=== PATIENT | male | born 1975 | race Caucasian/White ===

== ENCOUNTER 2017-06-03 13:35 | Emergency (ER) | payer MEDICARE ==
[~2017-06-03] VITALS: Ht 177.8 cm; Wt 73.6 kg
[~2017-06-03 13:35] MED LIST: ZOLO100T OR; ZOLO50TA OR; ZYPR15TA OR
--- NOTE | 2017-06-03 14:35 | REP ---
Right hand series: Four views. History: Injury. Findings: There is an impacted fracture of the distal third metacarpal with associated soft-tissue swelling. There is second metacarpal shortening. On the frontal view there is 7-8 mm of impaction. No displacement. No other fracture seen. Impression: Moderately impacted fracture of the distal end of the third metacarpal with shortening of the third metacarpal as a result. Associated swelling. Signed by Benny Nettles MD 06/03/2017 05:11 P
[2017-06-03 15:45] VITALS: BP 132/96
[2017-06-03] MEDS ORDERED: IBUP80TA PO (15:55)
== END 2017-06-03 16:07 | disposition home or self-care (01) ==
LOC: M ED 13:35
DX: S62.392A Other fracture of third metacarpal bone, right hand, initial encounter for closed fracture (principal); W22.8XXA Striking against or struck by other objects, initial encounter; Y92.099 Unspecified place in other non-institutional residence as the place of occurrence of the external cause; Y93.9 Activity, unspecified; Y99.9 Unspecified external cause status; F17.200 Nicotine dependence, unspecified, uncomplicated; F10.10 Alcohol abuse, uncomplicated; Z79.899 Other long term (current) drug therapy

== ENCOUNTER → 2017-09-18 | Outpatient (CLI) | payer MEDICARE ==
[2017-09-18 11:14] LABS: HEMATOCRIT 43.6 % (42.0-52.0); HEMOGLOBIN 15.2 g/dl (14.0-18.0); MEAN CORPUSCULAR HEMOGLOBIN 33.6 pg (27.0-33.0); MEAN CORPUSCULAR HGB CONC 34.9 g/dl (32.0-36.5); MEAN CORPUSCULAR VOLUME 96.2 fl (80.0-96.0); PLATELET COUNT, AUTOMATED 192 10^3/uL (150-450); RED BLOOD COUNT 4.53 10^6/uL (4.30-6.10); WHITE BLOOD COUNT 6.8 10^3/uL (4.0-10.0)
[2017-09-18 11:40] LABS: ESTIMATED AVERAGE GLUCOSE 105 MG/DL (60-110); HEMOGLOBIN A1c 5.3 %
[2017-09-18 12:01] LABS: ALBUMIN 3.7 GM/DL (3.2-5.2); ALKALINE PHOSPHATASE 118 U/L (45-117); ALT/SGPT 83 U/L (12-78); ANION GAP 10 MEQ/L (8-16); AST/SGOT 89 U/L (7-37); BILIRUBIN,DIRECT 0.2 MG/DL (0.0-0.2); BILIRUBIN,TOTAL 0.4 MG/DL (0.2-1.0); BLOOD UREA NITROGEN 4 MG/DL (7-18); CALCIUM LEVEL 8.7 MG/DL (8.5-10.1); CARBON DIOXIDE LEVEL 25 MEQ/L (21-32); CHLORIDE LEVEL 102 MEQ/L (98-107); CHOLESTEROL LEVEL 181 MG/DL (<200); CHOLESTEROL RISK RATIO 1.675 (<5); CREATININE FOR GFR 0.75 MG/DL (0.70-1.30); GLOMERULAR FILTRATION RATE > 60.0 (>60); GLUCOSE, FASTING 69 MG/DL (70-100); HDL CHOLESTEROL 108 MG/DL (>40); NON-HDL-C 73 MG/DL; SODIUM LEVEL 137 MEQ/L (136-145); TOTAL PROTEIN 7.8 GM/DL (6.4-8.2); TRIGLYCERIDES LEVEL 65 MG/DL (<150)
== END ==
LOC: M LAB 09:51
DX: Z79.899 Other long term (current) drug therapy (principal)
CPT/HCPCS: 82248

== ENCOUNTER → 2018-03-09 | Outpatient (REF) | payer MEDICARE ==
[2018-03-09 19:55] LABS: BASO # 0.1 10^3/uL (0.0-0.2); BASO % 0.6 % (0.0-1.0); EOS # 0.2 10^3/uL (0.0-0.50); EOS % 2.5 % (0.0-3.0); HEMATOCRIT 46.6 % (42.0-52.0); HEMOGLOBIN 15.6 g/dl (13.5-17.5); IMMATURE GRANULOCYTE % 0.7 % (0-3.0); LYMPH # 1.7 10^3/uL (1.5-4.5); MEAN CORPUSCULAR HEMOGLOBIN 34.1 pg (27.0-33.0); MEAN CORPUSCULAR HGB CONC 33.5 g/dl (32.0-36.5); MONO # 0.7 10^3/uL (0.0-0.8); MONO % 7.7 % (0.0-5.0); NEUTROPHILS # 6.6 10^3/uL (1.8-7.7); NEUTROPHILS % 70.5 % (36.0-66.0); PLATELET COUNT, AUTOMATED 246 10^3/uL (150-450); RED BLOOD COUNT 4.57 10^6/uL (4.30-6.10); RED CELL DISTRIBUTION WIDTH 11.9 % (11.5-14.5); WHITE BLOOD COUNT 9.4 10^3/uL (4.0-10.0)
[2018-03-09 20:11] LABS: ALBUMIN 3.7 GM/DL (3.2-5.2); ALKALINE PHOSPHATASE 117 U/L (45-117); ALT/SGPT 33 U/L (12-78); ANION GAP 6 MEQ/L (8-16); AST/SGOT 37 U/L (7-37); BILIRUBIN,TOTAL 0.5 MG/DL (0.2-1.0); BLOOD UREA NITROGEN 10 MG/DL (7-18); CALCIUM LEVEL 9.1 MG/DL (8.5-10.1); CARBON DIOXIDE LEVEL 28 MEQ/L (21-32); CHLORIDE LEVEL 104 MEQ/L (98-107); CHOLESTEROL LEVEL 196 MG/DL (<200); CHOLESTEROL RISK RATIO 2.063 (<5); CREATININE FOR GFR 0.83 MG/DL (0.70-1.30); GLOMERULAR FILTRATION RATE > 60.0 (>60); GLUCOSE, FASTING 97 MG/DL (70-100); HDL CHOLESTEROL 95 MG/DL (>40); LDL CHOLESTEROL 90.4 MG/DL (<100); NON-HDL-C 101 MG/DL; POTASSIUM SERUM 4.6 MEQ/L (3.5-5.1); SODIUM LEVEL 138 MEQ/L (136-145); TOTAL PROTEIN 8.3 GM/DL (6.4-8.2); TRIGLYCERIDES LEVEL 53 MG/DL (<150)
[2018-03-11 12:16] LABS: HEPATITIS B CORE ANTIBODY IGM NEGATIVE (NEGATIVE); HEPATITIS B SURFACE ANTIGEN NEGATIVE (NEGATIVE); HEPATITIS C VIRUS ABY INDEX < 0.0 INDEX (<0.8)
[2018-03-11 12:18] LABS: HEPATITIS A ANTIBODY IGM NEGATIVE (NEGATIVE)
== END ==
LOC: M LAB REF 17:45
DX: Z00.01 Encounter for general adult medical examination with abnormal findings (principal); R74.8 Abnormal levels of other serum enzymes; Z79.899 Other long term (current) drug therapy
CPT/HCPCS: 84443

== ENCOUNTER → 2019-02-24 | Outpatient (REF) | payer MEDICARE ==
[~2019-02-24] MED LIST changes: +IBUP80TA PO
[2019-02-24 17:49] LABS: ALBUMIN 3.3 GM/DL (3.2-5.2); ALT/SGPT 30 U/L (12-78); BILIRUBIN,TOTAL 0.3 MG/DL (0.2-1.0); BLOOD UREA NITROGEN 5 MG/DL (7-18); CALCIUM LEVEL 9.2 MG/DL (8.5-10.1); CARBON DIOXIDE LEVEL 29 MEQ/L (21-32); CHLORIDE LEVEL 103 MEQ/L (98-107); CHOLESTEROL LEVEL 185 MG/DL (<200); CHOLESTEROL RISK RATIO 1.868 (<5); GLOMERULAR FILTRATION RATE > 60.0 (>60); GLUCOSE, FASTING 85 MG/DL (70-100); HDL CHOLESTEROL 99 MG/DL (>40); LDL CHOLESTEROL 75 MG/DL (<100); NON-HDL-C 86 MG/DL; POTASSIUM SERUM 4.4 MEQ/L (3.5-5.1); SODIUM LEVEL 138 MEQ/L (136-145); TOTAL PROTEIN 7.3 GM/DL (6.4-8.2); TRIGLYCERIDES LEVEL 53 MG/DL (<150)
== END ==
LOC: M LAB REF 16:24
PROVIDERS: ATTEND Family Medicine Addiction Medicine
DX: Z00.01 Encounter for general adult medical examination with abnormal findings (principal); R74.8 Abnormal levels of other serum enzymes; Z79.899 Other long term (current) drug therapy

== ENCOUNTER 2020-02-21 11:24 | Emergency (ER) | payer MEDICARE ==
[~2020-02-21] VITALS: Ht 177.8 cm; Wt 59.5 kg
[2020-02-21 11:24] VITALS: BP 121/82
--- NOTE | 2020-02-21 12:09 | REP ---
Clinical: Trauma. Technique: AP, lateral, bilateral oblique views of the right hand. Findings: There is an angulated fracture at at the head of the second metacarpal bone with overlying soft tissue swelling. Old healed fracture of the third metacarpal bone noted. Remainder of the examination appears normal. Impression: Angulated fracture of the second metacarpal bone. Electronically Signed by Jerry Durham MD 02/21/2020 11:59 A
== END 2020-02-21 12:21 | disposition home or self-care (01) ==
LOC: M ED 11:24
DX: S62.300A Unspecified fracture of second metacarpal bone, right hand, initial encounter for closed fracture (principal); W22.09XA Striking against other stationary object, initial encounter; Y92.9 Unspecified place or not applicable; Y93.9 Activity, unspecified; Y99.9 Unspecified external cause status

== ENCOUNTER → 2020-03-25 | Outpatient (REF) | payer MEDICARE ==
[2020-04-21 19:55] LABS: BASO # 0.1 10^3/uL (0.0-0.2); BASO % 0.8 % (0.0-1.0); EOS # 0.5 10^3/uL (0.0-0.5); EOS % 4.8 % (0.0-3.0); HEMATOCRIT 43.3 % (42.0-52.0); HEMOGLOBIN 14.8 g/dl (13.5-17.5); LYMPH # 2.3 10^3/uL (1.5-5.0); LYMPH % 20.3 % (24.0-44.0); MEAN CORPUSCULAR HEMOGLOBIN 35.3 pg (27.0-33.0); MEAN CORPUSCULAR HGB CONC 34.2 g/dl (32.0-36.5); MEAN CORPUSCULAR VOLUME 103.3 fl (80.0-96.0); MONO # 1.3 10^3/uL (0.0-0.8); MONO % 12.1 % (0.0-5.0); NEUTROPHILS # 6.9 10^3/uL (1.5-8.5); NEUTROPHILS % 61.5 % (36.0-66.0); PLATELET COUNT, AUTOMATED 223 10^3/uL (150-450); RED BLOOD COUNT 4.19 10^6/uL (4.30-6.10); WHITE BLOOD COUNT 11.1 10^3/uL (4.0-10.0)
[2020-04-21 20:01] LABS: APPEARANCE, URINE CLEAR (CLEAR); BACTERIA, URINE AUTO NEGATIVE (NEGATIVE); BILIRUBIN, URINE AUTO NEGATIVE (NEGATIVE); BLOOD, URINE BLOOD NEGATIVE (NEGATIVE); COLOR, URINE STRAW (YELLOW); GLUCOSE, URINE (UA) AUTO NEGATIVE (NEGATIVE); KETONE, URINE AUTO NEGATIVE (NEGATIVE); LEUKOCYTE ESTERASE, URINE AUTO NEGATIVE (NEGATIVE); NITRITE, URINE AUTO NEGATIVE (NEGATIVE); PROTEIN, URINE AUTO NEGATIVE (NEGATIVE); RBC, URINE AUTO 0 /HPF (0-3); SPECIFIC GRAVITY URINE AUTO 1.001 (1.002-1.035); SQUAMOUS EPITHELIAL CELL UR AU 0 /HPF (0-6); UROBILINOGEN, URINE AUTO 0.2 mg/dL (0.0-2.0); WBC, URINE AUTO 0 /HPF (0-3)
[2020-05-04 22:14] LABS: ALBUMIN 3.2 GM/DL (3.2-5.2); ALT/SGPT 59 U/L (12-78); BILIRUBIN,TOTAL 0.4 MG/DL (0.2-1.0); BLOOD UREA NITROGEN 5 MG/DL (7-18); CALCIUM LEVEL 8.7 MG/DL (8.5-10.1); CARBON DIOXIDE LEVEL 27 MEQ/L (21-32); CHLORIDE LEVEL 103 MEQ/L (98-107); CREATININE FOR GFR 0.74 MG/DL (0.70-1.30); GLOMERULAR FILTRATION RATE > 60.0 (>60); GLUCOSE, FASTING 95 MG/DL (70-100); POTASSIUM SERUM 3.8 MEQ/L (3.5-5.1); SODIUM LEVEL 135 MEQ/L (136-145); TOTAL 25(OH) VITAMIN D 7.7 NG/ML (30.0-100.0); TOTAL PROTEIN 7.5 GM/DL (6.4-8.2)
== END ==
LOC: M LAB REF 10:17
PROVIDERS: ATTEND Nurse Practitioner Family
DX: Z00.01 Encounter for general adult medical examination with abnormal findings (principal); F17.200 Nicotine dependence, unspecified, uncomplicated; Z13.9 Encounter for screening, unspecified; R74.8 Abnormal levels of other serum enzymes; F32.9 Major depressive disorder, single episode, unspecified; Z79.899 Other long term (current) drug therapy
CPT/HCPCS: 80053; 80061; 81001; 82306; 83036; 84439; 84443; 85025; G0103

== ENCOUNTER 2022-11-07 06:20 | Emergency (ER) | payer MEDICARE ==
[~2022-11-07] VITALS: Ht 177.8 cm; Wt 57.1 kg
[2022-11-07 06:21] VITALS: BP 134/93
== END 2022-11-07 10:41 | disposition left against medical advice (07) ==
LOC: M ED 06:20
DX: Z53.21 Procedure and treatment not carried out due to patient leaving prior to being seen by health care provider (principal)

== ENCOUNTER 2022-11-20 03:44 | Emergency (ER) | payer MEDICARE ==
[~2022-11-20] VITALS: Ht 177.8 cm; Wt 59.9 kg
[2022-11-20 06:56] LABS: BASO # 0.1 10^3/uL (0.0-0.2); BASO % 0.9 % (0.0-1.0); EOS # 0.4 10^3/uL (0.0-0.5); EOS % 4.6 % (0.0-3.0); HEMATOCRIT 39.8 % (42.0-52.0); HEMOGLOBIN 13.4 g/dl (13.5-17.5); LYMPH # 1.2 10^3/uL (1.5-5.0); LYMPH % 15.5 % (24.0-44.0); MEAN CORPUSCULAR HEMOGLOBIN 33.9 pg (27.0-33.0); MEAN CORPUSCULAR HGB CONC 33.7 g/dl (32.0-36.5); MEAN CORPUSCULAR VOLUME 100.8 fl (80.0-96.0); MONO # 0.7 10^3/uL (0.0-0.8); MONO % 9.1 % (2.0-8.0); NEUTROPHILS # 5.5 10^3/uL (1.5-8.5); NEUTROPHILS % 69.8 % (36.0-66.0); PLATELET COUNT, AUTOMATED 261 10^3/uL (150-450); RED BLOOD COUNT 3.95 10^6/uL (4.30-6.10); WHITE BLOOD COUNT 7.8 10^3/uL (4.0-10.0)
[2022-11-20 07:20] LABS: BLOOD UREA NITROGEN 6 MG/DL (9-23); CALCIUM LEVEL 8.5 MG/DL (8.5-10.1); CARBON DIOXIDE LEVEL 28 MMOL/L (20-31); CHLORIDE LEVEL 103 MMOL/L (98-107); CREATININE FOR GFR 0.57 MG/DL (0.70-1.30); GLOMERULAR FILTRATION RATE > 60.0 (>60); GLUCOSE, FASTING 80 MG/DL (60-100); POTASSIUM SERUM 4.3 MMOL/L (3.5-5.1); SODIUM LEVEL 137 MMOL/L (136-145)
[2022-11-20 08:50] VITALS: BP 140/86
== END 2022-11-20 08:55 | disposition home or self-care (01) ==
LOC: M ED 03:44 → EDBD 03:44 → M ED 08:55
DX: R20.2 Paresthesia of skin (principal); F17.200 Nicotine dependence, unspecified, uncomplicated; F12.10 Cannabis abuse, uncomplicated; F10.10 Alcohol abuse, uncomplicated; Z79.899 Other long term (current) drug therapy

== ENCOUNTER 2023-10-12 18:56 | Emergency (ER) | payer MEDICARE ==
[~2023-10-12] VITALS: Ht 175.3 cm; Wt 57.6 kg
[2023-10-12] MEDS ORDERED: OLAN1TAB20 (20:26)
[2023-10-12] MEDS ORDERED: OLAN1TAB20 PO (20:47)
[2023-10-12 20:54] VITALS: BP 108/82; TEMP 98.2; O2SAT 98
== END 2023-10-12 20:55 | disposition home or self-care (01) ==
LOC: M ED 18:56
DX: Z76.0 Encounter for issue of repeat prescription (principal); F20.9 Schizophrenia, unspecified; F10.10 Alcohol abuse, uncomplicated; Z79.899 Other long term (current) drug therapy

== ENCOUNTER 2023-12-25 05:11 | Emergency (ER) | payer MEDICARE ==
[~2023-12-25] VITALS: Ht 177.8 cm; Wt 63.3 kg
[~2023-12-25 05:11] MED LIST changes: +OLAN1TAB20; +OLAN1TAB20 PO
[2023-12-25] MEDS: NS 1,000 ML IV ONE (05:28)
[2023-12-25 05:34] VITALS: TEMP 97.6
[2023-12-25 05:37] LABS: BASO # 0.1 10^3/uL (0.0-0.2); BASO % 0.7 % (0.0-1.0); EOS # 0.6 10^3/uL (0.0-0.5); HEMATOCRIT 37.7 % (42.0-52.0); LYMPH # 2.8 10^3/uL (1.5-5.0); LYMPH % 23.6 % (24.0-44.0); MEAN CORPUSCULAR HEMOGLOBIN 34.7 pg (27.0-33.0); MEAN CORPUSCULAR HGB CONC 34.5 g/dl (32.0-36.5); MEAN CORPUSCULAR VOLUME 100.5 fl (80.0-96.0); MONO # 0.8 10^3/uL (0.0-0.8); MONO % 6.9 % (2.0-8.0); NEUTROPHILS # 7.5 10^3/uL (1.5-8.5); NEUTROPHILS % 63.4 % (36.0-66.0); PLATELET COUNT, AUTOMATED 248 10^3/uL (150-450); RED BLOOD COUNT 3.75 10^6/uL (4.30-6.10); WHITE BLOOD COUNT 11.8 10^3/uL (4.0-10.0)
[2023-12-25 06:10] LABS: BLOOD UREA NITROGEN 6 MG/DL (9-23); CALCIUM LEVEL 7.8 MG/DL (8.5-10.1); CARBON DIOXIDE LEVEL 23 MMOL/L (20-31); CHLORIDE LEVEL 102 MMOL/L (98-107); CREATININE FOR GFR 0.55 MG/DL (0.70-1.30); GLOMERULAR FILTRATION RATE > 60.0 (>60); GLUCOSE, FASTING 88 MG/DL (60-100); POTASSIUM SERUM 4.1 MMOL/L (3.5-5.1); SODIUM LEVEL 135 MMOL/L (136-145)
[2023-12-25 06:18] LABS: ETHYL ALCOHOL (ETHANOL) 0.418 % (0.000-0.010)
[2023-12-25 06:41] VITALS: O2SAT 96
[2023-12-25 07:00] VITALS: BP 123/78
[2023-12-25] MEDS ORDERED: LORazepam 2 MG TAB PO PRN (07:30)
== END 2023-12-25 08:30 | disposition home or self-care (01) ==
LOC: M ED 05:11 → EDBD 05:11 → M ED 08:30
DX: F10.129 Alcohol abuse with intoxication, unspecified (principal); F17.200 Nicotine dependence, unspecified, uncomplicated; F12.10 Cannabis abuse, uncomplicated; F20.9 Schizophrenia, unspecified

== ENCOUNTER 2024-10-27 17:40 | Emergency (ER) | payer MEDICARE ==
[~2024-10-27] VITALS: Ht 177.8 cm; Wt 63.5 kg
[2024-10-27 17:44] VITALS: BP 178/96; TEMP 98.4; O2SAT 97
[2024-10-27] MEDS ORDERED: OLAN10TA12 PO (21:31)
== END 2024-10-27 21:52 | disposition home or self-care (01) ==
LOC: M ED 17:40
DX: Z76.0 Encounter for issue of repeat prescription (principal); F20.9 Schizophrenia, unspecified; Z79.899 Other long term (current) drug therapy

== ENCOUNTER 2024-12-23 18:15 | Emergency (ER) | payer MEDICARE ==
[~2024-12-23] VITALS: Ht 177.8 cm; Wt 68.2 kg
[~2024-12-23 18:15] MED LIST changes: +OLAN10TA12 PO
[2024-12-23 18:20] VITALS: TEMP 97.8
[2024-12-23 19:15] VITALS: BP 97/65; O2SAT 93
[2024-12-23] MEDS ORDERED: OLAN10TA12 PO (20:05)
== END 2024-12-24 02:15 | disposition home or self-care (01) ==
LOC: M ED 18:15
DX: Z76.0 Encounter for issue of repeat prescription (principal); F10.129 Alcohol abuse with intoxication, unspecified; F17.200 Nicotine dependence, unspecified, uncomplicated; F12.10 Cannabis abuse, uncomplicated; Z79.899 Other long term (current) drug therapy

== ENCOUNTER 2024-12-26 23:13 | Observation (INO) | payer MEDICARE ==
[~2024-12-26] VITALS: Ht 177.8 cm; Wt 68.2 kg
[2024-12-27] MEDS: ONDANSETRON 4MG ORAL DISINTEGRATING TAB PO ONE (05:05)
[2024-12-27] MEDS: NS (Normal Saline) 0.9% 1,000 ML IV ONE (07:28)
[2024-12-27] MEDS: METOCLOPRAMIDE INJ 10MG/2ML VIAL IV ONE (07:42)
[2024-12-27 08:04] LABS: BASO % 0.2 % (0.0-1.0); EOS # 0.1 10^3/uL (0.0-0.5); EOS % 0.4 % (0.0-3.0); HEMOGLOBIN 14.1 g/dl (13.5-17.5); LYMPH # 0.7 10^3/uL (1.5-5.0); LYMPH % 4.9 % (24.0-44.0); MEAN CORPUSCULAR HEMOGLOBIN 35.3 pg (27.0-33.0); MEAN CORPUSCULAR HGB CONC 35.3 g/dl (32.0-36.5); MONO # 0.8 10^3/uL (0.0-0.8); MONO % 5.4 % (2.0-8.0); NEUTROPHILS # 12.4 10^3/uL (1.5-8.5); NEUTROPHILS % 88.7 % (36.0-66.0); PLATELET COUNT, AUTOMATED 233 10^3/uL (150-450)
[2024-12-27 08:38] LABS: ETHYL ALCOHOL (ETHANOL) 0.114 % (0.000-0.010); LIPASE 29 U/L (12-53)
[2024-12-27 08:45] LABS: ALBUMIN 3.4 G/DL (3.2-5.2); ALKALINE PHOSPHATASE 147 U/L (40-129); ALT/SGPT 43 U/L (7.0-40); AST/SGOT 61 U/L (<34); BILIRUBIN,TOTAL 0.8 MG/DL (0.3-1.2); BLOOD UREA NITROGEN < 5 MG/DL (9-23); CALCIUM LEVEL 8.5 MG/DL (8.5-10.1); CARBON DIOXIDE LEVEL 22 MMOL/L (20-31); CHLORIDE LEVEL 95 MMOL/L (98-107); CREATININE FOR GFR 0.53 MG/DL (0.70-1.30); GLOMERULAR FILTRATION RATE > 90.0 (>60); GLUCOSE, FASTING 99 MG/DL (60-100); POTASSIUM SERUM 3.4 MMOL/L (3.5-5.1); SODIUM LEVEL 136 MMOL/L (136-145); TOTAL PROTEIN 7.4 G/DL (5.7-8.2)
[2024-12-27] MEDS: LORazepam 2 MG/ML 1ML VIAL IV STA (09:10)
[2024-12-27] MEDS: THIAMINE 200MG 2ML VIAL IV ONE (09:10)
[2024-12-27] MEDS: THIAMINE 100 MG TAB PO SCH ×2 (10:17→22:23)
[2024-12-27] MEDS: FOLIC ACID 1MG TAB PO SCH (10:26)
[2024-12-27] MEDS: LORazepam 2 MG TAB PO PRN (10:26)
[2024-12-27] MEDS: MULTIVITAMINS/MINERALS THERAP 1 TAB PO SCH (10:26)
[2024-12-27] MEDS ORDERED: OLAN1TAB20 PO (11:20)
[2024-12-27] MEDS ORDERED: HOME MED LIST COMPLETE! XX SCH (11:25)
[2024-12-27 12:25] LABS: MAGNESIUM LEVEL 1.9 MG/DL (1.8-2.4)
[2024-12-27] MEDS: ENOXAPARIN 40MG/0.4ML SYRINGE (J1650 PER 10MG) SC SCH (14:10)
[2024-12-27 15:30] VITALS: BP 156/99; TEMP 98.6; O2SAT 93
[2024-12-27] MEDS ORDERED: LORazepam 2 MG TAB PO PRN (16:00)
[2024-12-27 16:30] VITALS: BP 151/99; TEMP 97.9; O2SAT 96
[2024-12-27 18:30] VITALS: BP 151/98; TEMP 97.9; O2SAT 95
[2024-12-27] MEDS: PANTOPRAZOLE 40MG TAB PO ONE (18:30)
[2024-12-27 18:31] VITALS: BP 151/98
[2024-12-27 20:06] VITALS: BP 141/91; TEMP 97.7; O2SAT 98
[2024-12-27] MEDS: OLANZapine 10 MG TAB PO SCH (22:23)
[2024-12-28 02:32] VITALS: BP 137/108
[2024-12-28 05:09] LABS: HEMATOCRIT 39.3 % (42.0-52.0); HEMOGLOBIN 13.8 g/dl (13.5-17.5); MEAN CORPUSCULAR HEMOGLOBIN 35.2 pg (27.0-33.0); MEAN CORPUSCULAR HGB CONC 35.1 g/dl (32.0-36.5); MEAN CORPUSCULAR VOLUME 100.3 fl (80.0-96.0); PLATELET COUNT, AUTOMATED 187 10^3/uL (150-450); RED BLOOD COUNT 3.92 10^6/uL (4.30-6.10); WHITE BLOOD COUNT 9.3 10^3/uL (4.0-10.0)
[2024-12-28 05:12] VITALS: BP 140/90; TEMP 98.8; O2SAT 97
[2024-12-28 05:59] LABS: ALBUMIN 2.9 G/DL (3.2-5.2); ALKALINE PHOSPHATASE 130 U/L (40-129); ALT/SGPT 39 U/L (7.0-40); AST/SGOT 73 U/L (<34); BILIRUBIN,TOTAL 1.3 MG/DL (0.3-1.2); BLOOD UREA NITROGEN 7 MG/DL (9-23); CALCIUM LEVEL 8.7 MG/DL (8.5-10.1); CARBON DIOXIDE LEVEL 30 MMOL/L (20-31); CHLORIDE LEVEL 98 MMOL/L (98-107); CREATININE FOR GFR 0.55 MG/DL (0.70-1.30); GLOMERULAR FILTRATION RATE > 90.0 (>60); GLUCOSE, FASTING 77 MG/DL (60-100); MAGNESIUM LEVEL 2.1 MG/DL (1.8-2.4); POTASSIUM SERUM 3.4 MMOL/L (3.5-5.1); SODIUM LEVEL 138 MMOL/L (136-145); TOTAL PROTEIN 6.7 G/DL (5.7-8.2)
[2024-12-28] MEDS: MULTIVITAMINS/MINERALS THERAP 1 TAB PO SCH (08:44)
[2024-12-28] MEDS: FOLIC ACID 1MG TAB PO SCH (08:45)
[2024-12-28] MEDS: POTASSIUM CHLORIDE 10MEQ SR TABLET PO ONE (08:45)
[2024-12-28 11:27] VITALS: BP 138/99
[2024-12-28 12:00] VITALS: BP 138/99; TEMP 97.5; O2SAT 97
[2024-12-28] MEDS ORDERED: FOLI1TAB11 PO (13:35)
[2024-12-28] MEDS ORDERED: THIA100TA PO (13:35)
[2024-12-28] MEDS ORDERED: THERTAB19 PO (13:35)
== END 2024-12-28 15:21 | disposition home or self-care (01) ==
LOC: M ED 23:13 → M ED INP 23:14 → M MSPAV 12-27 15:30 → UNDODISOB 12-28 15:21
PROVIDERS: ADMIT Student in an Organized Health Care Education/Training Program; ATTEND Student in an Organized Health Care Education/Training Program
DX: F10.129 Alcohol abuse with intoxication, unspecified (principal); E87.6 Hypokalemia; K70.10 Alcoholic hepatitis without ascites; F20.89 Other schizophrenia; Z86.59 Personal history of other mental and behavioral disorders; R74.01 Elevation of levels of liver transaminase levels; Z79.899 Other long term (current) drug therapy
CPT/HCPCS: 36415; 80053; 82077; 83690; 83735; 85025; 85027; 87486; 87581; 87633; 87798; 87880; 93005; 96374; 96375; 99285; G0378; J1650; J2060; J2765; J3411

== ENCOUNTER → 2025-01-08 | Outpatient (REF) | payer MEDICARE ==
[~2025-01-08] MED LIST changes: +FOLI1TAB11 PO; +THERTAB19 PO; +THIA100TA PO
[2025-01-08 19:08] LABS: PROSTATIC SPECIFIC AG MONITOR 0.76 NG/ML (< 4.00)
[2025-01-08 19:11] LABS: ALBUMIN 3.4 G/DL (3.2-5.2); ALKALINE PHOSPHATASE 134 U/L (40-129); ALT/SGPT 120 U/L (7.0-40); AST/SGOT 115 U/L (<34); BILIRUBIN,DIRECT 0.2 MG/DL (<0.4); BILIRUBIN,TOTAL 0.3 MG/DL (0.3-1.2); CHOLESTEROL LEVEL 163 MG/DL (<200); CHOLESTEROL RISK RATIO 2.65 (<5); HDL CHOLESTEROL 61.3 MG/DL (>40); LDL CHOLESTEROL 88.1 MG/DL (<100); MAGNESIUM LEVEL 2.3 MG/DL (1.8-2.4); NON-HDL-C 101.7 MG/DL; TOTAL PROTEIN 7.6 G/DL (5.7-8.2); TRIGLYCERIDES LEVEL 68 MG/DL (<150)
[2025-01-08 19:12] LABS: FOLATE > 24.0 NG/ML (>5.4); VITAMIN B12 LEVEL 613 PG/ML (211-911)
== END ==
LOC: M LAB REF 17:43
PROVIDERS: ATTEND Nurse Practitioner Family
DX: F10.229 Alcohol dependence with intoxication, unspecified (principal); R74.01 Elevation of levels of liver transaminase levels; Z13.6 Encounter for screening for cardiovascular disorders; R97.20 Elevated prostate specific antigen [PSA]; Z11.9 Encounter for screening for infectious and parasitic diseases, unspecified

== ENCOUNTER → 2025-04-11 | Outpatient (REF) | payer MEDICARE ==
[2025-04-11 15:23] LABS: ALT/SGPT 43.0 U/L (7.0-40); AST/SGOT 73.0 U/L (<34); MAGNESIUM LEVEL 2.0 MG/DL (1.8-2.4)
[2025-04-11 15:26] LABS: VITAMIN B12 LEVEL 437.0 PG/ML (211-911)
== END ==
LOC: M LAB REF 14:53
PROVIDERS: ATTEND Nurse Practitioner Family
DX: F10.20 Alcohol dependence, uncomplicated (principal); R74.01 Elevation of levels of liver transaminase levels